=== PATIENT | female | born 1950 | race Hispanic/Latino ===

== ENCOUNTER 2017-08-28 12:56 | Outpatient (CLI) | payer OTHER | END 2017-08-28 12:57 | disposition home or self-care (01) | LOC: MRI 12:56 | PROVIDERS: ATTEND Specialist | DX: Z53.9 Procedure and treatment not carried out, unspecified reason (principal) ==

== ENCOUNTER 2017-09-16 13:47 | Outpatient (CLI) | payer OTHER ==
--- NOTE | 2017-09-16 16:26 | MRI ---
LUMBAR SPINE MRI WITH AND WITHOUT CONTRAST 09/16/17 CLINICAL HISTORY: History of bone metastases. Lumbar stenosis. Pain. COMPARISON: 04/10/16. FINDINGS: Lumbar spine vertebral body heights are maintained. No evidence of compression deformity or acute mar row edema. No acute disc space inflammation. Conus medullaris is normal in morphology and terminates at the T12-L1 level. No significant central canal stenosis at L1-2 or L2-3 level. L3-4: There is mild to moderate central canal stenosis on the basis of broad based disc osteophyte co mplex. There is mild left neural foraminal narrowing. No significant right foraminal narrowing. L4-5: There is moderate to severe central canal stenosis on the basis of disc osteophyte complex and severe bilateral facet osteoarthritis and redundancy of ligamentum flava. There is mild bilateral navarro ral foraminal stenosis. L5-S1: No significant central canal or neural foraminal stenosis. Incidental note of mild disc osteophyte complex formation of the low thoracic spine effacing the vent ral thecal sac. No evidence of pathologic mass producing enhancement of the vertebral canal. Incidental note of left renal cyst, grossly stable to 05/07/16 exam. IMPRESSION: Moderate to severe central canal stenosis at L4-5 due to disc osteophyte and severe facet hypertrophy . This is grossly stable to prior exam. The previously discussed small area of presumed enhancement of the left lateral aspect of T11 is not discerned on the basis of this exam, although this area is not reliably visualized. POS: RAMONITA
--- NOTE | 2017-09-16 16:39 | MRI ---
MRI OF THE THORACIC SPINE WITH AND WITHOUT GADOLINIUM CONTRAST: History: Chronic back pain. Cervical cancer. FINDINGS: The spinal cord throughout the cervical level has a normal appearance without evidence of compression , expansion, abnormal signal, or abnormal enhancement. Vertebral body height and alignment are mainta ined. The central canal and neural foramina are patent. Minimal posterior osteophyte/disc complexes a re present throughout thoracic spine. Bone marrow signal is within normal limits. IMPRESSION: Minimal degenerative changes of the thoracic spine. No evidence of metastatic disease or neural compr ession. POS: RAMONITA
== END 2017-09-16 13:48 | disposition home or self-care (01) ==
LOC: TBSIIMAG 13:47
PROVIDERS: ATTEND Specialist
DX: C79.51 Secondary malignant neoplasm of bone (principal); M48.061 Spinal stenosis, lumbar region without neurogenic claudication
CPT/HCPCS: 72157; 72158; 82565

== ENCOUNTER 2018-06-17 09:49 | Outpatient (CLI) | payer OTHER ==
--- NOTE | 2018-06-17 11:30 | MMO ---
BILATERAL SCREENING MAMMOGRAMS: COMPARISON: Exam from 2016. FINDINGS: Interpreted with computer aided detection. Scattered fibroglandular densities are Seen. There are scattered benign calcifications. No evidence of mass or distortion. No interval change noted. Recommend one year followup. IMPRESSION: BI-RADS Category 2-Benign findings. POS: RAMONITA
== END 2018-06-17 09:50 | disposition home or self-care (01) ==
LOC: SCSMAMMO 09:49
PROVIDERS: ATTEND Family Medicine
DX: Z12.31 Encounter for screening mammogram for malignant neoplasm of breast (principal)
CPT/HCPCS: 77067

== ENCOUNTER 2019-02-05 10:36 | Outpatient (CLI) | payer MEDICARE, OTHER ==
--- NOTE | 2019-02-05 12:54 | MRI ---
CERVICAL SPINE MRI WITHOUT CONTRAST: Date; 02/05/19 HISTORY: Bilateral wrist pain. COMPARISON: None. TECHNIQUE: Cervical spine MRI is performed without intravenous Gadolinium administration. Multisequential, multi planar imaging is performed. FINDINGS: Limited evaluation due to motion degradation. Grossly, there is appropriate T1 marrow signal intensit y of the cervical vertebra. Vertebral body height is maintained. No fracture. No significant STIR hyp erintensity to suggest vertebral body edema or ligamentous injury. Visualized brain parenchyma, cervicomedullary junction, cervical cord, and the upper thoracic cord campuzano ve a normal size and signal intensity. C2-C3: No significant central canal stenosis. Neural foramina are grossly patent. C3-C4: Broad based disc osteophyte complex effaces the ventral subarachnoid space. There is mass eff ect and deformity of the cervical cord. At least moderate central canal stenosis. Mild bilateral fora juan narrowing is suspected. C4-C5: No evidence of high grade central canal stenosis. Right neural foramen appears patent. Mild l eft foraminal narrowing is suspected. C5-C6: There does appear to be central disc bulge without significant central canal stenosis. Subopt imal evaluation of neural foramina. Mild bilateral foraminal narrowing cannot be excluded. C6-C7: Broad based disc bulge abuts the thecal sac. No significant central canal stenosis. There is right facet hypertrophy. Mild bilateral foraminal narrowing. C7-T1: No significant central canal stenosis or foraminal narrowing. IMPRESSION: Limited evaluation due to motion degradation. There is evidence of significant central canal stenosis at C3-C4. Varying degrees of neural foraminal narrowing as described above. POS: OFF
--- NOTE | 2019-02-05 14:38 | MRI ---
MRI OF THE RIGHT WRIST WITHOUT CONTRAST: 02/05/19 INDICATION: Concern for TFC injury and bilateral wrist pain. FINDINGS: There are subchondral cyst-like abnormalities involving the volar and ulnar aspect of the proximal ines kilo. There is also some increased sclerosis involving the proximal aspect of the triquetrum. There is degenerative intrasubstance signal involving the TFC without evidence of discrete tear. The ECU te ndon and visualized aspects of the meniscal homologue appear within normal limits. Scapholunate and l unatotriquetral ligaments are intact. The extensor and flexor tendons of the wrist appear intact. The median nerve and ulnar neurovasculature appear within normal limits. No acute fracture is demonstrat ed. No joint effusion is noted. IMPRESSION: Findings suspicious for ulnocarpal abutment syndrome. There is prominent degenerative subchondral cys t-like abnormalities involving the volar and proximal aspect of the lunate as well as the proximal as pect of the triquetrum. There is prominent degenerative intrasubstance signal of the TFC without evid ence of discrete tear on this noncontrast evaluation. POS: CET
== END 2019-02-05 10:37 | disposition home or self-care (01) ==
LOC: TBSIIMAG 10:36
PROVIDERS: ATTEND Orthopaedic Surgery Hand Surgery
DX: S69.81XD Other specified injuries of right wrist, hand and finger(s), subsequent encounter (principal); S62.114D Nondisplaced fracture of triquetrum [cuneiform] bone, right wrist, subsequent encounter for fracture with routine healing; M54.12 Radiculopathy, cervical region; M48.02 Spinal stenosis, cervical region
CPT/HCPCS: 72141

== ENCOUNTER 2019-02-11 19:31 | Emergency (ER) | payer MEDICARE, OTHER ==
--- NOTE | 2019-02-11 19:55 | RAD ---
EXAM: CHEST ONE VIEW HISTORY: Cough COMPARISON: 11/30/2014 FINDINGS: Cardiac silhouette is within normal limits for the portable technique of the study. Pulmonary vascula ture is within normal limits. The lungs are clear. Degenerative changes are seen in the spine. There has been no interval change from prior study. IMPRESSION: No acute cardiopulmonary process.
[2019-02-11] MEDS ORDERED: Albuterol Sulfate 2.5 mg/3 ml Neb ONE (20:24)
[2019-02-11 20:37] LABS: #Basophils 0.1 thou/uL (0.0-0.2); #Eosinphils 0.1 thou/uL (0.0-0.7); #Lymphocytes 0.9 thou/uL (1.20-3.40); #Monocytes 0.6 thou/uL (0.11-0.59); #Neutrophils 7.4 thou/uL (1.40-6.50); %Basophils 1.4 % (0.0-1.0); %Eosinophils 1.5 % (0.0-10.0); %Monocytes 5.9 % (0.0-10.0); %Neutrophils 81.1 % (42.0-75.0); Hemoglobin 14.2 g/dL (12.0-16.0); Mean Corpuscular Hemoglobin 29.2 pg (27.0-31.0); Mean Corpuscular Volume 88.3 fL (78.0-98.0); Platelet Count 215 thou/uL (130-400); RBC Distribution Width 13.3 % (11.5-14.5); Red Blood Cell (RBC) Count 4.87 mill/uL (4.20-5.40); White Blood Cell (WBC) Count 9.2 thou/uL (4.8-10.8)
[2019-02-11 20:56] LABS: ALT (SGPT) 35 U/L (8-55); AST (SGOT) 31 U/L (5-34); Albumin 4.4 g/dL (3.4-4.8); Alkaline Phosphatase 106 U/L (40-150); Anion Gap 15 mmol/L (10-20); BUN (Urea Nitrogen) 22 mg/dL (9.8-20.1); Bilirubin, Total 0.3 mg/dL (0.2-1.2); Calc. Creatinine Clearance 0 mL/min (70-130); Carbon Dioxide 27 mmol/L (23-31); Chloride 101 mmol/L (98-107); Estimated GFR-MDRD 57; Glucose 210 mg/dL (80-115); Protein, Total 7.4 g/dL (6.0-8.3); Sodium 139 mmol/L (136-145)
--- NOTE | 2019-02-11 21:55 | CT ---
CT ANGIOGRAM THORAX WITH IV CONTRAST AND 3-D RECONSTRUCTIONS CLINICAL INDICATION: Shortness of breath. COMPARISON: None FINDINGS: Pulmonary arteries: No filling defects are seen in the pulmonary arteries to suggest a pulmonary embo lilo. Aorta: The aorta is normal in caliber without evidence of an aortic dissection. Lungs: A 7 mm pulmonary nodule is seen in the posterior aspect right upper lobe which was also seen o n a prior CT cervical spine on 11/08/2010 is overall stable in size and appearance. No additional pulmonary nodule is seen. There is peribronchial thickening seen in each lower lobe primarily on the right which could be relat ed to inflammatory process. No pleural effusion is present. Mediastinum: Vascular calcifications are seen in the coronary arteries. No enlarged lymph nodes are s een. Thyroid gland: Normal appearance where visualized. Osseous structures: Degenerative changes are seen in the spine. Chest wall: No abnormality visualized. Upper abdomen: A 3.2 cm exophytic cystic lesion superior pole left kidney is seen and stable when com pared to study on 10/18/2016. Upper abdomen otherwise has a normal CT appearance. IMPRESSION: 1. Suggestion of mild peribronchial thickening primarily in each lower lobe and greater on the right which could be related to inflammatory process. 2. No CT evidence of a pulmonary embolus. 3. Stable pulmonary nodule right upper lobe unchanged since study in 2010 4. Stable superior pole left renal cystic lesion.
== END 2019-02-11 22:15 | disposition home or self-care (01) ==
LOC: ERS 19:31
DX: J20.9 Acute bronchitis, unspecified (principal); G47.30 Sleep apnea, unspecified; E11.9 Type 2 diabetes mellitus without complications; E03.9 Hypothyroidism, unspecified; E78.5 Hyperlipidemia, unspecified; I10 Essential (primary) hypertension; F17.210 Nicotine dependence, cigarettes, uncomplicated
CPT/HCPCS: 71045; 71275; 80053; 83605; 83880; 85025; 85379; 94640; J7611

== ENCOUNTER 2019-03-19 07:21 | Outpatient (CLI) | payer MEDICARE, MEDICAID ==
[2019-03-19 11:19] LABS: #Basophils 0.1 thou/uL (0.0-0.2); #Eosinphils 0.2 thou/uL (0.0-0.7); #Lymphocytes 1.7 thou/uL (1.20-3.40); #Monocytes 0.6 thou/uL (0.11-0.59); #Neutrophils 8.5 thou/uL (1.40-6.50); %Eosinophils 1.8 % (0.0-10.0); %Lymphocytes 15.1 % (21.0-51.0); %Monocytes 5.2 % (0.0-10.0); %Neutrophils 76.9 % (42.0-75.0); Hemoglobin 14.4 g/dL (12.0-16.0); Mean Corpuscular HGB CONC 32.4 g/dL (32.0-36.0); Mean Corpuscular Hemoglobin 28.7 pg (27.0-31.0); Mean Corpuscular Volume 88.6 fL (78.0-98.0); Mean Platelet Volume 9.1 fL (7.4-10.4); Platelet Count 259 thou/uL (130-400); RBC Distribution Width 13.5 % (11.5-14.5); Red Blood Cell (RBC) Count 5.03 mill/uL (4.20-5.40)
[2019-03-19 11:43] LABS: Bacteria/HPF None Seen HPF (None Seen); Bilirubin Negative (Negative); Blood, Urine Negative (Negative); Clarity Clear (Clear); Glucose, Urine (Dipstick) Normal (Negative); Leukocyte Negative Leu/uL (Negative); Nitrite Negative (Negative); Protein, Urine (Dipstick) 30 mg/dL (Neg-Trace); RBC/HPF 0-3 HPF (0-3); Urobilinogen Normal mg/dL (Less than 2); WBC/HPF 0-3 HPF (0-3)
[2019-03-19 11:49] LABS: Anion Gap 13 mmol/L (10-20); BUN (Urea Nitrogen) 21 mg/dL (9.8-20.1); Calc. Creatinine Clearance 0 mL/min (70-130); Calcium 10.4 mg/dL (7.8-10.44); Carbon Dioxide 27 mmol/L (23-31); Chloride 103 mmol/L (98-107); Estimated GFR-MDRD 63; Glucose 166 mg/dL (80-115); Potassium 4.3 mmol/L (3.5-5.1); Sodium 139 mmol/L (136-145)
--- NOTE | 2019-03-22 16:48 | EKG ---
Test Reason : Blood Pressure : / mmHG Vent. Rate : 077 BPM Atrial Rate : 077 BPM P-R Int : 180 ms QRS Dur : 084 ms QT Int : 372 ms P-R-T Axes : 060 057 070 degrees QTc Int : 420 ms Normal sinus rhythm with sinus arrhythmia Normal ECG Confirmed by ARYA ZHENG ([id number]) on 03/22/2019 4:48:21 PM Referred By: MARK Confirmed By:ARYA ZHENG
== END 2019-03-19 07:22 | disposition home or self-care (01) ==
LOC: LABBT 07:21
PROVIDERS: ATTEND Orthopaedic Surgery Hand Surgery
DX: Z01.818 Encounter for other preprocedural examination (principal); S63.591A Other specified sprain of right wrist, initial encounter
CPT/HCPCS: 80048; 81001; 85025; 93005; 93010

== ENCOUNTER 2019-03-23 06:33 | Day surgery (SDC) | payer MEDICARE, MEDICAID ==
[2019-03-19 10:22] VITALS: BMI 53.8
[2019-03-23] MEDS ORDERED: Midazolam HCl 2 mg/2 ml Vial ONE ×3 (07:25→09:00)
[2019-03-23] MEDS ORDERED: Fentanyl 100 MCG/2 ML VIAL ONE ×3 (07:25→09:00)
[2019-03-23] MEDS ORDERED: EPINEPHrine 1 MG/ML AMP ONE (08:47)
[2019-03-23] MEDS ORDERED: Bacitracin Zinc Ointment 30 gm TUBE ONE (08:47)
[2019-03-23] MEDS ORDERED: Bupivacaine PF 0.5% 30 ML VIAL ONE (08:47)
[2019-03-23] MEDS ORDERED: Albuterol Sulfate 2.5 mg/3 ml Neb ONE (08:52)
[2019-03-23] MEDS ORDERED: Ketamine 50 MG/ML (10ML VIAL) ONE (08:53)
[2019-03-23] MEDS ORDERED: Albuterol Sulfate 2.5 mg/3 ml Neb NEB SCH (09:15)
[2019-03-23] MEDS ORDERED: Bupivacaine HCl 0.5%/Epinephrine 1:200,000/PF 30 ml Vial ONE (09:46)
[2019-03-23] MEDS ORDERED: Ketorolac Tromethamine 30 MG/ML VIAL ONE (12:52)
--- NOTE | 2019-03-23 20:12 | RAD ---
EXAM: XR Forearm Rt 2 View STANDARD PROVIDED CLINICAL HISTORY: Ulnar shortening osteotomy COMPARISON: None FINDINGS: Plate and screw fixation of ulnar diaphysis noted compatible with the provided clinical history. IMPRESSION: As above.
--- NOTE | 2019-03-24 09:09 | OP ---
DATE OF PROCEDURE: 03/23/2019 PREOPERATIVE DIAGNOSES: 1. Triangular fibrocartilage tear, radial degenerative, chronic. 2. Right lunate ulna and triquetrum radial 20% chondral flap tear. No evidence of ligament tear, marked wrist synovitis, and ulnocarpal impingement. POSTOPERATIVE DIAGNOSES: 1. Triangular fibrocartilage tear, radial degenerative, chronic. 2. Right lunate ulna and triquetrum radial 20% chondral flap tear. No evidence of ligament tear, marked wrist synovitis, and ulnocarpal impingement. PROCEDURES PERFORMED: 1. Right wrist arthroscopic synovectomy. 2. Right wrist arthroscopic TFCC debridement. 3. Right wrist and forearm-ulna shortening osteotomy through Rayhack technique. FINDINGS: 1. Large, medial TFCC tear, radial side greater than central. 2. A 1.0 cm chondral flap tear as described above and ulnocarpal impingement. DESCRIPTION OF PROCEDURE: After successful general endotracheal anesthesia, the limb was prepped and draped. The patient had time-out done appropriately. We then placed the arm in appropriate traction with the traction so we could see the wrist and screen simultaneously. We then placed and then outlined the 3, 4, 6U, 6R portals. Once we established these ports, we had the time-out was finished, in sterile conditions, sterile drape, we established the wrist joint over the 3/4 portal, inflating with 8 mL of 0.5% normal saline with epinephrine inside, placed the 18-gauge needle in the outflow portion over the 6U and began exploration. We saw marked tenosynovitis of wrist so much that we could not see the chondral surface of bone. We then switched the camera to the ulnar side, put the shaver in the ulnar side, we were able to control this situation. Then, we added more flow, changed visualization portals, we were able to now see the entire wrist with synovitis in each compartment, so arthroscopic synovectomy was done with a high-speed shaver 2.0, the 2.0 scope visualized and was switched back and forth between visualization radially and ulnarly and radially. The patient then had enough synovectomy performed. We could visualize triangular fibrocartilage. It was a tear there that went almost to the length of the cartilage surface, with very thick and less mobile, but we trimmed the combination of the shaver and a basket forceps. We noted there was a chondral flap tear seen to visualization just in line with the wire used for irrigation and drainage, so we then used this as a guide to hold the flap tear, which was about 1 cm long and 3 to 4 mm wide and performed an irrigation and debridement. The patient then completed debridement of chondral flap tear till there was no further tear seen. We used a grabbing forceps from knee arthroscopy set to help finish this, and we grasped the last 3-4 mm. There was a grade 1-2 lesion with some underlying chondral surface seen on the triquetrum lunate with no arthritis between them seen today. and the remaining structures were all normal without significant chondromalacia in other spots. There was evidence on the chondral surface of the ulna there was some ulnocarpal impingement. We trimmed this to a stable rim. Finally, we had finished we visualized that there was some ulnar sticking up in the resected triangular fibrocartilage defect, so we performed a Rayhack shortening osteotomy using the usual steps to identify the slightest lateral portion, was direct lateral in this case, with Rayhack screw and plate on, with the put compression on. There was no evidence of bleeding or hematuria or hematoma. The patient then had all the incisions closed to include the ulnar approach which was straight direct, all was closed fascia with 0 Vicryl, intermediate layer with 2-0 Monocryl and a combination of 3-0 Monocryl for the subcutaneous and deep dermis. Skin was reapproximated with 4-0 nylon in interrupted mattress pattern with excellent feel for the repair. The patient then had bacitracin and Adaptic placed on the wound, and then left the operating room with the incisions closed, final closure with 3-0 nylon and no evidence of anesthetic or operative complication. Job ID: [id number]
== END 2019-03-23 14:05 | disposition home or self-care (01) ==
LOC: SDC 06:33
PROVIDERS: ATTEND Orthopaedic Surgery Hand Surgery
PROC: 0MB54ZZ Excision of Right Wrist Bursa and Ligament, Percutaneous Endoscopic Approach (ICD-10-PCS; principal; 2019-03-23)
PROC: 0PSK04Z Reposition Right Ulna with Internal Fixation Device, Open Approach (ICD-10-PCS; 2019-03-23)
PROC: 0PBK0ZZ Excision of Right Ulna, Open Approach (ICD-10-PCS; 2019-03-23)
PROC: 0PHK04Z Insertion of Internal Fixation Device into Right Ulna, Open Approach (ICD-10-PCS; 2019-03-23)
DX: S63.591A Other specified sprain of right wrist, initial encounter (principal); M65.88 Other synovitis and tenosynovitis, other site; M25.831 Other specified joint disorders, right wrist; M18.12 Unilateral primary osteoarthritis of first carpometacarpal joint, left hand; M65.4 Radial styloid tenosynovitis [de Quervain]; I10 Essential (primary) hypertension; E03.9 Hypothyroidism, unspecified; G47.30 Sleep apnea, unspecified; E11.9 Type 2 diabetes mellitus without complications; C54.1 Malignant neoplasm of endometrium; G47.33 Obstructive sleep apnea (adult) (pediatric); K21.9 Gastro-esophageal reflux disease without esophagitis; E78.2 Mixed hyperlipidemia; M19.90 Unspecified osteoarthritis, unspecified site; F17.210 Nicotine dependence, cigarettes, uncomplicated; M54.12 Radiculopathy, cervical region; J44.9 Chronic obstructive pulmonary disease, unspecified; E66.01 Morbid (severe) obesity due to excess calories; Z68.43 Body mass index [BMI] 50.0-59.9, adult; Z79.82 Long term (current) use of aspirin; Z79.4 Long term (current) use of insulin; Z79.899 Other long term (current) drug therapy; Z88.5 Allergy status to narcotic agent; Z98.890 Other specified postprocedural states
CPT/HCPCS: 25390; 29846; 73090; 76000; 82962; C1713; 36416; J0171; J0670; J0690; J1885; J2250; J3010; J7611; S0020

== ENCOUNTER 2019-07-20 06:56 | Outpatient (CLI) | payer MEDICARE, MEDICAID ==
--- NOTE | 2019-07-20 08:41 | MMO ---
Bilateral MAMMO Bilat Screen DDI[facility]PE[facility]. CLINICAL HISTORY: Patient is 68 years old and is seen for screening. The patient has the following family history of breast cancer: sister. The patient has a history of uterine cancer at age 63. VIEWS: The views performed were: bilateral craniocaudal with tomosynthesis and bilateral mediolateral oblique with tomosynthesis. FILMS COMPARED: The present examination has been compared to prior imaging studies performed at [facility] on 06/17/2018, and at [facility] on 08/23/2016. This study has been interpreted with the assistance of computer-aided detection. MAMMOGRAM FINDINGS: There are scattered fibroglandular densities. There are stable benign appearing calcifications seen in both breasts. There are no suspicious masses, suspicious calcifications, or new areas of architectural distortion. IMPRESSION: THERE IS NO MAMMOGRAPHIC EVIDENCE OF MALIGNANCY. A ROUTINE FOLLOW-UP MAMMOGRAM IN 1 YEAR IS RECOMMENDED. THE RESULTS OF THIS EXAM WERE SENT TO THE PATIENT. ACR BI-RADS Category 2 - Benign finding MAMMOGRAPHY NOTE: 1. A negative mammogram report should not delay a biopsy if a dominant of clinically suspicious mass is present. 2. Approximately 10% to 15% of breast cancers are not detected by mammography. 3. Adenosis and dense breasts may obscure an underlying neoplasm. Reported by: BERNY DE LA CRUZ MD Electonically Signed: [id number]
--- NOTE | 2019-07-20 09:26 | CT ---
CT ABDOMEN AND PELVIS WITH AND WITHOUT CONTRAST: INDICATION: History of endometrial cancer. COMPARISON: Comparison is made with a CT abdomen and pelvis of 10/18/2016. FINDINGS: Evaluation of the lung bases reveals a mild degree of asymmetric bronchiectasis involving the left lo wer lobe, with associated interstitial and ground-glass opacities. Mild pleural-based thickening is also present. This may relate to mild residua from an atypical infection. Evidence of prior cholecy stectomy. No discrete hepatic lesion. There is an exophytic hypodense lesion that emanates from the superior pole of the left kidney stable in size at a maximum diameter of 3.2 cm. Generalized low-at tenuation of the liver may relate to hepatic steatosis. Solid abdominal organs are stable in appeara nce. There is persistent subcutaneous edema of the ventral and right lateral abdominal wall, mid to lower aspect. There is a hernia containing nonobstructed bowel again demonstrated at the previous r ight iliac chain that is grossly stable. No new adenopathy is seen. There is an additional fat-cont aining hernia just cephalad within the anterolateral right abdominal wall. Stable postsurgical salas e within the pelvis is noted. There is colonic diverticulosis. IMPRESSION: 1. No interval metastatic disease identified. 2. Right iliac chain lymph node is grossly stable. 3. Probable sequelae from atypical infection at the left lung base. 4. Stable hernias of the right lower abdominal wall with adjacent subcutaneous edema. POS: TPC
[2019-07-20] MEDS ORDERED: Iopamidol-370 76% 500 ML 1 ML ONE (13:16)
== END 2019-07-20 06:57 | disposition home or self-care (01) ==
LOC: BICCT 06:56
PROVIDERS: ATTEND Family Medicine
DX: Z12.31 Encounter for screening mammogram for malignant neoplasm of breast (principal); C54.1 Malignant neoplasm of endometrium; R60.0 Localized edema; K43.9 Ventral hernia without obstruction or gangrene; Z80.3 Family history of malignant neoplasm of breast; Z85.54 Personal history of malignant neoplasm of ureter
CPT/HCPCS: 36415; 74178; 77063; 77067; 85025; Q9967

== ENCOUNTER 2019-07-26 09:19 | Outpatient (CLI) | payer MEDICARE, MEDICAID ==
--- NOTE | 2019-07-26 09:49 | BD ---
EXAM: Bone densitometry using DEXA HISTORY: 68 yo female. Screening for postmenopausal osteoporosis FINDINGS: L1--bone mineral density 1.222 g/sq cm; T score 2.1 ; Z score 3.8 L2--bone mineral density 1.171 g/sq cm; T score 1.3 ; Z score 3.1 L3--bone mineral density 1.217 g/sq cm; T score 1.2 ; Z score 3.2 L4--bone mineral density 1.284 g/sq cm; T score 2.0 ; Z score 4.0 Total L1-L4--bone mineral density 1.227 g/sq cm; T score 1.6 ; Z score 3.5 Left femoral neck--bone mineral density1.063; T score 1.9 ; Z score 3.5 Total proximal left femur--bone mineral density 1.177; T score 1.9 ; Z score 3.2 There has been an interval decrease of 3.1% in the BMD of the lumbar spine and a improvement of 12. 6% in the BMD of the proximal femur since the previous study of 05/15/2016. IMPRESSION: No evidence of osteopenia or osteoporosis.
== END 2019-07-26 09:20 | disposition home or self-care (01) ==
LOC: BICMAMMO 09:19
PROVIDERS: ATTEND Family Medicine
DX: Z13.820 Encounter for screening for osteoporosis (principal); N95.9 Unspecified menopausal and perimenopausal disorder
CPT/HCPCS: 77080